=== PATIENT | female | born 1965 | race African-American/Black ===

== ENCOUNTER 2018-10-06 01:12 | Emergency (ER) | payer BC ==
[~2018-10-06] VITALS: Ht 172.7 cm; Wt 98.0 kg
[2018-10-06 01:19] VITALS: Ht 172.7 cm; Wt 98.0 kg
[2018-10-06 02:04] LABS: BASOPHIL % 0.6 % (0-2); PLATELET COUNT 237 x10^3mcL (130-400)
[2018-10-06 02:13] LABS: RED CELL DISTRIBUTION WIDTH 15.5 % (11.5-14.5)
[2018-10-06 02:46] LABS: CALCIUM 8.9 mg/dL (8.5-10.1); CHLORIDE SERUM 106 mmol/L (98-107); CREATININE SERUM 0.7 mg/dL (0.6-1.0); GFR1 > 60 mL/min; GLUCOSE SERUM 101 mg/dL (74-106); POTASSIUM SERUM 3.7 mmol/L (3.5-5.1); SODIUM SERUM 140 mmol/L (136-145)
[2018-10-06 02:49] LABS: ALBUMIN 3.7 g/dL (3.4-5.0); ALKALINE PHOSPHATASE 93 U/L (46-116); ALT/SGPT 38 U/L (14-59); AST/SGOT 20 U/L (15-37); BILIRUBIN TOTAL 0.25 mg/dL (0.20-1.00)
[2018-10-06 03:36] VITALS: BP 114/71
== END 2018-10-06 03:36 | disposition home or self-care (01) ==
LOC: ED 01:12
PROVIDERS: Emergency Medicine
DX: I10 Essential (primary) hypertension (principal); R42 Dizziness and giddiness; R53.1 Weakness; Z91.041 Radiographic dye allergy status
CPT/HCPCS: 36415